=== PATIENT | female | born 1945 | race Two or more races ===

== ENCOUNTER 2022-05-31 12:53 | Outpatient (CLI) | payer OTHER ==
[2022-05-31] MEDS ORDERED: SYNTH PO (13:56)
[2022-05-31] MEDS ORDERED: LANOXIN125 MCG PO (13:56)
[2022-05-31] MEDS ORDERED: PLAVIX75 MG PO (13:56)
[2022-05-31] MEDS ORDERED: FOLIC A PO (13:57)
[2022-05-31] MEDS ORDERED: XANAX2 MG PO (13:57)
[2022-05-31] MEDS ORDERED: TOPROL XL50 M1 PO (13:57)
[2022-05-31] MEDS ORDERED: CRESTOR20 MG PO (13:58)
[2022-05-31] MEDS ORDERED: RESTORIL30 M1 PO (13:58)
== END 2022-05-31 15:23 | disposition home or self-care (01) ==
LOC: LAB 12:53
PROVIDERS: ATTEND Colon & Rectal Surgery
DX: Z01.812 Encounter for preprocedural laboratory examination (principal); K59.00 Constipation, unspecified; K62.5 Hemorrhage of anus and rectum; D59.8 Other acquired hemolytic anemias; D68.9 Coagulation defect, unspecified; R15.9 Full incontinence of feces; Z20.828 Contact with and (suspected) exposure to other viral communicable diseases; Z11.59 Encounter for screening for other viral diseases

== ENCOUNTER 2022-06-06 06:20 | Day surgery (SDC) | payer OTHER ==
[~2022-06-06] VITALS: Ht 157.5 cm; Wt 63.5 kg
[~2022-06-06 06:20] MED LIST: CRESTOR20 MG PO; FOLIC A PO; LANOXIN125 MCG PO; PLAVIX75 MG PO; RESTORIL30 M1 PO; SYNTH PO; TOPROL XL50 M1 PO; XANAX2 MG PO
== END 2022-06-06 12:30 | disposition home or self-care (01) ==
LOC: CIR.AMB 06:20
PROVIDERS: ATTEND Colon & Rectal Surgery
DX: R15.9 Full incontinence of feces (principal); R32 Unspecified urinary incontinence; Z20.822 Contact with and (suspected) exposure to COVID-19; Z88.8 Allergy status to other drugs, medicaments and biological substances; I10 Essential (primary) hypertension; E78.5 Hyperlipidemia, unspecified; J45.909 Unspecified asthma, uncomplicated; Z95.5 Presence of coronary angioplasty implant and graft; Z95.1 Presence of aortocoronary bypass graft; E03.9 Hypothyroidism, unspecified; G43.909 Migraine, unspecified, not intractable, without status migrainosus
CPT/HCPCS: 64581; 95971; C1778

== ENCOUNTER 2022-06-20 06:32 | Day surgery (SDC) | payer OTHER | END 2022-06-20 10:50 | disposition home or self-care (01) | LOC: CIR.AMB 06:32 | PROVIDERS: ATTEND Colon & Rectal Surgery | DX: R15.9 Full incontinence of feces (principal); Z20.822 Contact with and (suspected) exposure to COVID-19; Z88.8 Allergy status to other drugs, medicaments and biological substances; I10 Essential (primary) hypertension; E03.9 Hypothyroidism, unspecified; G43.909 Migraine, unspecified, not intractable, without status migrainosus; E78.5 Hyperlipidemia, unspecified | CPT/HCPCS: 64590; 95971; C1767 ==